=== PATIENT | female | born 1970 | race Caucasian/White ===

== ENCOUNTER → 2017-10-08 | Outpatient (CLI) | payer BC ==
--- NOTE | 2017-10-08 10:15 | Diagnostic Imaging Report ---
EXAMINATION: Bilateral diagnostic mammogram with tomography evaluation. The current study was also evaluated with a Computer Aided Detection (CAD) system. INDICATION: Mass in the upper aspect of the right breast posteriorly. COMPARISON: 04/21/2015. FINDINGS: The breasts are composed of heterogeneously dense parenchyma which may decrease mammographic sensitivity. A lobulated circumscribed mass is seen at the palpable lump area in the upper aspect of the right breast posteriorly measuring 1.5 cm. Background dense parenchyma is seen with no definite other focal lesion seen in either breast. IMPRESSION: A circumscribed 1.5 cm mass along the posterior upper aspect of the right breast correlates with the palpable mass. An ultrasound evaluation is pending. ACR BI-RADS Category 0: Incomplete. (Needs additional imaging evaluation). Result letter will be mailed to the patient. Note: At least 10% of breast cancer is not imaged by mammography. Dictated by: Dictated on workstation # [id number]
--- NOTE | 2017-10-08 11:27 | Diagnostic Imaging Report ---
EXAMINATION: Right breast ultrasound. INDICATION: Right breast mass. FINDINGS: At the 1:30 o'clock position 10 cm from the nipple, there is a mass measuring 2.1 x 1.7 x 1.9 cm with lobulated margins and minimal internal vascularity demonstrated. There is increased through-transmission. The four-quadrants and retroareolar region of the right breast and axilla demonstrate no other lesion. IMPRESSION: Indeterminate solid mass measuring 2.1 cm at the 1:30 o'clock position 10 cm from the nipple. This is concerning for breast cancer. An ultrasound-guided biopsy is recommended. The findings and recommendations were personally discussed with the patient at the time of dictation. The report was faxed to the office of SEFERINO Mark, by [email or web address]:20 AM. ACR BI-RADS Category 4B: Intermediate suspicion of malignancy. Dictated by: Dictated on workstation # [id number]
== END ==
LOC: RAD 09:26
PROVIDERS: ATTEND Nurse Practitioner Family
DX: N63.10 Unspecified lump in the right breast, unspecified quadrant (principal)
CPT/HCPCS: 76641; 77066

== ENCOUNTER → 2017-10-10 | Outpatient (CLI) | payer BC ==
[~2017-10-10] VITALS: Ht 172.7 cm; Wt 81.6 kg
[~2017-10-10] MED LIST: LIDOCAINE 1% INJ 20 ML (XYLOCAINE) VIAL INJ ONE; LIDOCAINE 1% INJ 50 ML (XYLOCAINE) VIAL ONE
[2017-10-10 11:32] VITALS: BP 124/67
[2017-10-10 12:20] VITALS: BP 120/68
--- NOTE | 2017-10-10 13:19 | Diagnostic Imaging Report ---
EXAMINATION: Ultrasound-guided biopsy of a breast mass. A metallic clip placed to brandon biopsy site. INDICATION: Right breast mass. CONSENT: Informed consent was obtained from the patient. The risks, benefits, potential complications and alternatives were reviewed and all questions answered to the patient's satisfaction. FINDINGS: Ultrasound images demonstrate a 1:30 o'clock position of right breast mass. PROCEDURE: After sterile preparation and draping, 1% lidocaine was utilized for local anesthesia. A 13-gauge guide needle was introduced under live ultrasound guidance to the level of the lesion. Good needle position was documented with ultrasound images. 14-gauge biopsy needle was utilized and core biopsies were performed. Multiple samples were obtained and sent to pathology. A metallic clip was placed to brandon the site of the biopsy. A subsequent mammogram is performed and confirms the proper positioning of the clip. The patient tolerated the procedure well with no immediate complications. IMPRESSION: Successful ultrasound-guided core biopsy of right breast 1:30 o'clock position mass. Dictated by: Dictated on workstation # [id number]
--- NOTE | 2017-10-11 18:09 | Diagnostic Imaging Report ---
Right breast diagnostic mammogram is performed. INDICATION: Documentation of clip position after ultrasound-guided biopsy. FINDINGS: The upper medial right breast mass is seen with a biopsy clip along its inferior aspect. IMPRESSION: Satisfactory clip position within the inferior aspect of the upper medial right breast mass. Pathology results are pending. ACR BI-RADS Category 4: Suspicious abnormality. Result letter will be mailed to the patient. Note: At least 10% of breast cancer is not imaged by mammography. Dictated by: Dictated on workstation # [id number]
== END ==
LOC: RAD 11:20
PROVIDERS: ATTEND Nurse Practitioner Family
DX: N63.12 Unspecified lump in the right breast, upper inner quadrant (principal)
CPT/HCPCS: 19083

== ENCOUNTER 2018-06-03 15:13 | Outpatient (RCR) | payer BC | END 2018-07-07 | disposition home or self-care (01) | LOC: ONC 15:13 | PROVIDERS: ATTEND Radiology Radiation Oncology | DX: Z51.0 Encounter for antineoplastic radiation therapy (principal); C50.211 Malignant neoplasm of upper-inner quadrant of right female breast; Z17.1 Estrogen receptor negative status [ER-] | CPT/HCPCS: 77290; 77295; 77300; 77334; 77336; 77417; 99204; 99212 ==